=== PATIENT | female | born 1990 | race American Indian/Alaskan Native ===

== ENCOUNTER 2018-11-13 14:03 | Emergency (ER) | payer OTHER ==
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
[2018-11-13] MEDS ORDERED: IBUPROFEN PO ONE (15:24)
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
== END 2018-11-13 18:13 | disposition home or self-care (01) ==
LOC: ED 14:03
DX: M54.2 Cervicalgia (principal); M54.9 Dorsalgia, unspecified; Z79.1 Long term (current) use of non-steroidal anti-inflammatories (NSAID); Z90.49 Acquired absence of other specified parts of digestive tract; V89.2XXA Person injured in unspecified motor-vehicle accident, traffic, initial encounter; Y93.89 Activity, other specified; Y92.488 Other paved roadways as the place of occurrence of the external cause; Y99.8 Other external cause status
CPT/HCPCS: 99282